=== PATIENT | female | born 1970 | race African-American/Black ===

== ENCOUNTER 2016-11-03 09:58 | Emergency (ER) | payer OTHER ==
[~2016-11-03] VITALS: Ht 167.6 cm; Wt 86.2 kg
--- NOTE | ~2016-11-03 | CR72 ---
[facility] A Service of [facility] RADIOLOGY TEXT RESULTS PATIENT: ORLIN SIERRA LOCATION: [facility] : 74 UNIT #: [id number] AGE: [address]: Clint Rose MD SEX: F ORDER DR: [id number] [facility] [address] [place], [place] [address] [id number] MR#: [id number] Acc #: [id number] NAME: ORLIN SIERRA. : 1970 SEX: F STUDY DATE/TIME: 11/03/2016 10:48 UNIT: [facility] ROOM: STUDY DESCRIPTION: CR Chest Single View Portable Attending Physician: Clint Rose M.D. Ordering Physician: Clint Rose M.D. Primary Care Physician: Nayeli Cervantes MEDICAL IMAGING REPORT This report is preliminary unless electronic signature is present EXAM Portable chest x-ray, 11/03/2016. HISTORY Chest pain. Left side chest pain began last night. TECHNIQUE AP radiograph of the chest is presented. COMPARISON 12/05/2015. FINDINGS Mild cardiac enlargement. New compared to prior study. This may in part be artifactual and related to AP technique. The lungs are well inflated. Linear densities adjacent to the left hemidiaphragm likely atelectatic in nature. There is no evidence of pneumonia or edema. No pleural effusion or pneumothorax. No suspicious nodule. The bony structures are unremarkable. Dictated by... Jaime Nixon M.D. THIS IS AN ELECTRONICALLY VERIFIED REPORT Jaime Nixon M.D. at 11/04/2016 4:57 PM NISREEN/mickey TD: 11/03/2016 22:52 JOB #: [id number] MEDICAL IMAGING REPORT [facility] A Service [facility] RADIOLOGY TEXT RESULTS PATIENT: ORLIN SIERRA LOCATION: [facility] : 74 UNIT #: [id number] AGE: [address]: Clint Rose MD SEX: F ORDER DR: Page 1 of 1 COPY
--- NOTE | ~2016-11-03 | EKG ---
PATIENT: ORLIN SIERRA UNIT #: [id number] Ventricular Rate: 72 BPM Atrial Rate: 72 BPM P-R Interval: 170 ms QRS Duration: 82 ms Q-T Interval: 418 ms QTC Calculation(Bezet): 457 ms P [place]: 65 degrees Calculated R [place]: 30 degrees Calculated T [place]: 37 degrees Diagnosis Line: Normal sinus rhythm Diagnosis Line: Normal ECG Diagnosis Line: No previous ECGs available Diagnosis Line: Confirmed by GUY SAUCEDA MD ([id number]) on Diagnosis Line: 11/03/2016 2:26:47 PM INTERPRETING MD: SOHAIL CR
[2016-11-03 10:46] LABS: POC - CKMB <1.0 ng/mL (0.0-7.9); POC - TROPONIN <0.05 ng/mL (<=0.05)
[2016-11-03 11:07] LABS: BASOPHIL% 0.5 % (0-2.5); EOSINOPHIL% 0.3 % (0.0-7.0); HEMATOCRIT 39.5 % (35.0-45.0); HEMOGLOBIN 13.2 gm/dL (12.0-16.0); LYMPHOCYTE# 3.1 X10e3 (1.0-3.5); LYMPHOCYTE% 29.8 % (17.0-45.0); MEAN CELL VOLUME 89.3 FL (83-96); MEAN CORPUSCULAR HGB CONC 33.6 g/dL (30-36); MEAN PLATELET VOLUME 9.2 FL (6.5-11.5); MONOCYTE# 0.3 X10e3 (0-1.0); MONOCYTE% 3.3 % (3.0-12.0); NEUTROPHIL# 6.8 X10e3 (1.5-7.1); NEUTROPHIL% 66.1 % (40-75); PLATELET COUNT 224 X10e3 (140-420); RED BLOOD COUNT 4.42 X10e (3.90-5.30); RED CELL DISTRIBUTION WIDTH 13.3 % (11.0-15.5); WHITE BLOOD COUNT 10.2 X10e3 (4.0-10.5)
[2016-11-03 11:13] LABS: DIFF IND NO
[2016-11-03 11:39] LABS: ALBUMIN SERUM 4.6 g/dL (3.5-5.0); BILIRUBIN, DIRECT 0.1 mg/dL (0.0-0.2); BILIRUBIN,INDIRECT 0.1 mg/dL (0.0-0.9); BILIRUBIN,TOTAL 0.2 mg/dL (0.2-2.0); BUN/CREATININE RATIO 15.55; CALCIUM SERUM 9.6 mg/dL (8.4-10.2); CREATININE SERUM 0.9 mg/dL (0.6-1.4); GLOM FILT RATE Estimated 90.2 mL/min (>60); POTASSIUM 3.7 mmol/L (3.5-5.1); PROTEIN TOTAL SERUM 8.1 g/dL (6.0-8.3)
[2016-11-03 11:46] LABS: PARTIAL THROMBOPLASTIN TIME 27.9 SECONDS (23.5-31.3); PROTHROMBIN TIME (PATIENT) 10.6 SECONDS (10.0-11.7)
[2016-11-03 12:41] LABS: POC - CKMB <1.0 ng/mL (0.0-7.9); POC - TROPONIN <0.05 ng/mL (<=0.05)
== END 2016-11-03 13:18 | disposition home or self-care (01) ==
LOC: CED 09:58
PROVIDERS: Emergency Medicine
DX: R07.89 Other chest pain (principal); I10 Essential (primary) hypertension; Z90.49 Acquired absence of other specified parts of digestive tract; Z88.8 Allergy status to other drugs, medicaments and biological substances
CPT/HCPCS: 36415; 71010; 80048; 80076; 82553; 84484; 85025; 85610; 85730; 93005; 99285